=== PATIENT | female | born 2000 | race Caucasian/White ===

== ENCOUNTER 2023-04-30 10:37 | Emergency (ER) | payer MEDICAID, OTHER ==
[~2023-04-30] VITALS: Ht 180.3 cm; Wt 54.4 kg
[2023-04-30 11:15] VITALS: O2SAT 99
[2023-04-30] MEDS ORDERED: TRAM50TA2 PO (11:19)
[2023-04-30] MEDS ORDERED: ALBU8.5H8 INH (11:38)
== END 2023-04-30 11:24 | disposition home or self-care (01) ==
LOC: ER 10:37
DX: M54.50 Low back pain, unspecified (principal)
CPT/HCPCS: A4606; A4663